=== PATIENT | male | born 1955 | race Caucasian/White ===

== ENCOUNTER 2016-10-20 11:59 | Emergency (ER) | payer BC, OTHER ==
[~2016-10-20] VITALS: Ht 180.3 cm; Wt 100.0 kg
[~2016-10-20 11:59] MED LIST: ASPIRIN; GLIPIZIDE; LISI-661 PO; METFORMIN; OUT OF MEDS; SIMV-261 PO
[2016-10-20] MEDS ORDERED: GLIP2.5ER PO (12:07)
[2016-10-20] MEDS ORDERED: METF500T4 PO (12:07)
[2016-10-20] MEDS ORDERED: LISI-660 PO (12:07)
[2016-10-20 12:53] LABS: INFLUENZA TYPE B NEGATIVE FOR TYPE B (NEGATIVE)
[2016-10-20 13:34] VITALS: BP 121/79
[2016-10-20 13:41] LABS: GLUCOSE,POINT OF CARE 204 MG/DL (70-110)
== END 2016-10-20 13:51 | disposition home or self-care (01) ==
LOC: EMS 12:00
DX: J06.9 Acute upper respiratory infection, unspecified (principal); E11.9 Type 2 diabetes mellitus without complications; E78.00 Pure hypercholesterolemia, unspecified; I10 Essential (primary) hypertension; H92.02 Otalgia, left ear; F17.210 Nicotine dependence, cigarettes, uncomplicated
CPT/HCPCS: 82962; 87804; 99284